=== PATIENT | male | born 1985 | race Caucasian/White ===

== ENCOUNTER → 2017-05-09 | Outpatient (CLI) | payer OTHER ==
--- NOTE | ~2017-05-09 | CR127 ---
[facility] A Service of [facility] RADIOLOGY TEXT RESULTS PATIENT: ARELY RODRIGUEZ LOCATION: [facility] : 81 UNIT #: [id number] AGE: [address]: Daisy Judge MD SEX: M ORDER DR: [id number] [facility] [address] [place], [place] [address] [id number] O MR#: [id number] Acc #: [id number] NAME: ARELY RODRIGUEZ : 1985 SEX: M STUDY DATE/TIME: 05/09/2017 12:22 UNIT: [facility] ROOM: STUDY DESCRIPTION: CR Foot Complete Min 3 View Rt Attending Physician: Daisy Judge M.D. Referring Physician: Daisy Judge M.D. Ordering Physician: Daisy Judge M.D. Primary Care Physician: Asa Vazquez M.D. MEDICAL IMAGING REPORT This report is preliminary unless electronic signature is present EXAM Right foot, 3 views, 05/09/2017, 1222 hours. CLINICAL HISTORY 32-year-old man complaining of redness and cellulitis of the great toe. Symptoms for 2 days with pain. COMPARISON 05/14/2016 FINDINGS AP, lateral and oblique views demonstrate previous surgical change with resection of the distal aspect of the fifth metatarsal, but the toe is present. This finding is stable. There are multiple hammertoe deformities present. There is no fracture or dislocation. There is hallux valgus deformity at the first toe. There is joint space loss at the first metatarsophalangeal joint. There is no soft tissue gas, foreign body or plain film evidence of osteomyelitis. IMPRESSION 1. Hallux valgus deformity with joint space loss at the first metatarsophalangeal joint. There is no fracture, soft tissue gas or plain film evidence of osteomyelitis. 2. There is apparent postoperative change with resection of the distal half of the fifth metatarsal. The fifth toe is present. This area of postoperative change appears similar to 05/14/2016. Dictated by... Anais Huizar M.D. THIS IS AN ELECTRONICALLY VERIFIED REPORT Anais Huizar M.D. at 05/10/2017 6:41 PM SMM/pc [facility] A Service of [facility] RADIOLOGY TEXT RESULTS PATIENT: ARELY RODRIGUEZ LOCATION: [facility] : 81 UNIT #: [id number] AGE: [address]: Daisy Judge MD SEX: M ORDER DR: TD: 05/10/2017 10:51 JOB #: [id number] MEDICAL IMAGING REPORT Page 1 of 1 COPY
== END | disposition home or self-care (01) ==
LOC: CRAD 12:06
DX: L03.031 Cellulitis of right toe (principal); M20.11 Hallux valgus (acquired), right foot; Z98.890 Other specified postprocedural states
CPT/HCPCS: 73630